=== PATIENT | female | born 1950 | race American Indian/Alaskan Native ===

== ENCOUNTER 2017-09-30 13:17 | Outpatient (CLI) | payer MEDICARE ==
--- NOTE | 2017-09-30 16:18 | XRay Report ---
FINAL REPORT PROCEDURE: XR SHOULDER 2+V RT TECHNIQUE: LEFT shoulder radiographs including AP views in internal and external rotation and scapular Y view.. CPT 63115 HISTORY: Shoulder pain. COMPARISON: No prior studies are available for comparison. FINDINGS: Fracture (s) and/or Dislocation(s): None . Joint space(s): Mild narrowing and osteophytes of the acromioclavicular joint. Soft tissues: Normal . Bone mineralization: Mild osteopenia. Foreign bodies: None . IMPRESSION: Mild osteopenia and degenerative change without radiographic evidence of displaced fracture.
== END 2017-09-30 13:18 | disposition home or self-care (01) ==
LOC: SPVIMAG 13:17
PROVIDERS: ATTEND Orthopaedic Surgery
DX: M19.011 Primary osteoarthritis, right shoulder (principal); M85.811 Other specified disorders of bone density and structure, right shoulder